=== PATIENT | male | born 1960 | race Caucasian/White ===

== ENCOUNTER 2017-07-14 20:07 | Emergency (ER) | payer MEDICAID ==
[~2017-07-14] VITALS: Ht 172.7 cm; Wt 80.5 kg
[2017-07-14 20:11] VITALS: BP 116/75
[2017-07-14] MEDS ORDERED: KETOROLAC 30 MG/1 ML ONE (20:36)
[2017-07-14] MEDS ORDERED: KETOROLAC 30 MG/1 ML IM ONE (21:00)
== END 2017-07-14 20:52 | disposition home or self-care (01) ==
LOC: ED 20:50
DX: G89.29 Other chronic pain (principal); M25.512 Pain in left shoulder; F17.210 Nicotine dependence, cigarettes, uncomplicated
CPT/HCPCS: 73030; 96372; 99284; J1885